=== PATIENT | male | born 1985 | race Caucasian/White ===

== ENCOUNTER 2018-09-27 10:11 | Emergency (ER) | payer OTHER ==
[~2018-09-27] VITALS: Ht 190.5 cm; Wt 95.3 kg
[2018-09-27 10:43] VITALS: BP 136/90
[2018-09-27] MEDS ORDERED: IBUPROFEN 600 MG TABLET PO ONE ×2 (11:22→11:30)
--- NOTE | 2018-09-27 11:46 | NUR ---
Patient discharged to home in stable condition. Written and verbal after care instructions given. Patient verbalizes understanding of instruction.
== END 2018-09-27 11:46 | disposition home or self-care (01) ==
LOC: ER 10:14
DX: M54.41 Lumbago with sciatica, right side (principal); J45.909 Unspecified asthma, uncomplicated